=== PATIENT | male | born 1940 | race Caucasian/White ===

== ENCOUNTER 2016-07-07 20:28 | Emergency (ER) | payer OTHER ==
[~2016-07-07] VITALS: Ht 170.2 cm; Wt 67.0 kg
[~2016-07-07 20:28] MED LIST: AMOX1TAB12 PO; DOXY100T PO; LISI-170 PO; METF500T4 PO
[2016-07-07] MEDS ORDERED: DOXYCYCLINE 100MG TABLET PO ONE (21:00)
[2016-07-07] MEDS ORDERED: AMOXICILLIN/CLAV. 250 MG/5 ML ORAL SUSP PO SCH (21:00)
[2016-07-07 21:32] LABS: HEMOGLOBIN 16.1 g/dL (13.7-18.0)
[2016-07-07 21:40] LABS: BLOOD UREA NITROGEN 22 mg/dL (7-18)
[2016-07-07] MEDS ORDERED: SODIUM CHLORIDE 0.9% 1,000 ML IV ONE (22:35)
[2016-07-07] MEDS ORDERED: ONDANSETRON 2MG/ML, 2ML IVPush PRN (23:00)
[2016-07-07] MEDS ORDERED: LISINOPRIL 20 MG TABLET ONE (23:15)
[2016-07-08] MEDS ORDERED: LISINOPRIL 20 MG TABLET PO ONE
[2016-07-08 00:51] VITALS: BP 175/97
== END 2016-07-08 01:43 | disposition short-term general hospital (02) ==
LOC: ED 22:24 → EDIP 22:35 → UNDOADMIN 22:35 → ED 07-08 01:43
DX: L03.116 Cellulitis of left lower limb (principal); L03.115 Cellulitis of right lower limb; E11.65 Type 2 diabetes mellitus with hyperglycemia; I10 Essential (primary) hypertension
CPT/HCPCS: 36415; 70450; 80048; 82040; 85025; 96360; 96361; 99285; J7030

== ENCOUNTER 2016-08-17 18:05 | Inpatient (IN) | payer OTHER ==
[~2016-08-17] VITALS: Ht 160 cm; Wt 60.1 kg
[2016-08-17] MEDS ORDERED: SODIUM CHLORIDE 0.9% 1,000ML IVBOLUS ONE (19:00)
[2016-08-17] MEDS ORDERED: SODIUM CHLORIDE FLUSH 10ML SYR IVF ONE (19:00)
[2016-08-17 19:41] LABS: BLOOD UREA NITROGEN 51 mg/dL (7-18)
[2016-08-17 19:46] LABS: IS PT STATUS REG ER OR PRE ER? YES
[2016-08-17] MEDS ORDERED: ASPIRIN 81 MG TABLET CHEW PO ONE (20:00)
[2016-08-17] MEDS ORDERED: HEPARIN 5,000 UNITS/ML, 1ML IV ONE (20:00)
[2016-08-17] MEDS ORDERED: HEPARIN 25,000 UNITS/500ML PMX 500 ML ONE (20:13)
[2016-08-17] MEDS ORDERED: HEPARIN 5,000 UNITS/ML, 1ML ONE (20:13)
[2016-08-17] MEDS ORDERED: ASPIRIN 81 MG TABLET CHEW ONE (20:13)
[2016-08-17] MEDS: HEPARIN 25,000 UNITS/500ML PMX 500 ML IV PRN (20:24)
[2016-08-17] MEDS ORDERED: NITROGLYCERIN SINGLE TAB 0.4 MG SL PRN (21:30)
[2016-08-17] MEDS ORDERED: morphine SULFATE 10 MG/ML, 1ML IV PRN (21:30)
[2016-08-17] MEDS: SODIUM CHLORIDE 0.9% 1,000 ML IV SCH (22:09)
[2016-08-17 22:21] VITALS: BP 160/84
[2016-08-18 01:03] VITALS: BP 157/83
[2016-08-18 02:46] LABS: IS PT STATUS REG ER OR PRE ER? NO
[2016-08-18] MEDS: HEPARIN 5,000 UNITS/ML, 1ML IV PRN ×2 (02:55→11:27)
[2016-08-18] MEDS: SODIUM CHLORIDE 0.9% 1,000 ML IV SCH ×2 (06:10→14:44)
[2016-08-18 07:13] VITALS: BP 147/73
[2016-08-18] MEDS ORDERED: LISINOPRIL 20 MG TABLET PO SCH (09:00)
[2016-08-18] MEDS ORDERED: METOPROLOL TARTRATE 100 MG TABLET PO SCH (09:00)
[2016-08-18 09:26] LABS: IS PT STATUS REG ER OR PRE ER? NO
[2016-08-18] MEDS: ASPIRIN 325 MG TABLET EC PO SCH (09:39)
[2016-08-18] MEDS: SODIUM CHLORIDE FLUSH 10ML SYR IVF SCH ×2 (09:39→22:08)
[2016-08-18] MEDS: INSULIN ASPART 100 UNITS/ML, PEN SQ-INSULIN SCH ×3 (13:08→22:09)
[2016-08-18 14:44] LABS: IS PT STATUS REG ER OR PRE ER? NO
[2016-08-18 14:48] VITALS: BP 142/83
[2016-08-18 16:59] VITALS: BP 162/80
[2016-08-18] MEDS: CARVEDILOL 6.25 MG TABLET PO SCH (17:01)
[2016-08-18 20:23] LABS: IS PT STATUS REG ER OR PRE ER? NO
[2016-08-18 21:06] VITALS: BP 139/72
[2016-08-18] MEDS: ATORVASTATIN 80 MG TABLET PO SCH (22:09)
[2016-08-19 01:32] VITALS: BP 112/60
[2016-08-19] MEDS: SODIUM CHLORIDE 0.9% 1,000 ML IV SCH ×2 (01:35→08:31)
[2016-08-19] MEDS: HEPARIN 5,000 UNITS/ML, 1ML IV PRN ×3 (01:49→20:27)
[2016-08-19] MEDS: HEPARIN 25,000 UNITS/500ML PMX 500 ML IV PRN (03:51)
[2016-08-19 05:53] LABS: ASPARTATE AMINO TRANSFERASE 15 U/L (15-37); BLOOD UREA NITROGEN 19 mg/dL (7-18)
[2016-08-19] MEDS: ASPIRIN 325 MG TABLET EC PO SCH (06:15)
[2016-08-19] MEDS: CARVEDILOL 6.25 MG TABLET PO SCH (06:15)
[2016-08-19 06:47] VITALS: BP 153/69
[2016-08-19] MEDS: INSULIN ASPART 100 UNITS/ML, PEN SQ-INSULIN SCH ×4 (07:00→20:48)
[2016-08-19] MEDS: SODIUM CHLORIDE FLUSH 10ML SYR IVF SCH ×2 (08:28→20:47)
[2016-08-19 12:45] VITALS: BP 153/77
[2016-08-19] MEDS: GUAIFENESIN 200 MG TABLET PO SCH ×3 (12:46→20:47)
[2016-08-19] MEDS: LISINOPRIL 10 MG TABLET PO SCH (12:46)
[2016-08-19] MEDS: CARVEDILOL 3.125 MG TABLET PO SCH (17:30)
[2016-08-19] MEDS ORDERED: CARVEDILOL 3.125 MG TABLET PO SCH (18:00)
[2016-08-19 19:45] VITALS: BP 124/55
[2016-08-19] MEDS: ATORVASTATIN 80 MG TABLET PO SCH (20:47)
[2016-08-20] VITALS (7 sets, daily range): BP systolic 115–170; BP diastolic 64–84
[2016-08-20 03:06] LABS: BLOOD UREA NITROGEN 17 mg/dL (7-18)
[2016-08-20] MEDS: HEPARIN 25,000 UNITS/500ML PMX 500 ML IV PRN (05:10)
[2016-08-20] MEDS: CARVEDILOL 3.125 MG TABLET PO SCH ×2 (05:43→17:38)
[2016-08-20] MEDS: GUAIFENESIN 200 MG TABLET PO SCH ×4 (05:43→20:15)
[2016-08-20] MEDS: ASPIRIN 325 MG TABLET EC PO SCH (05:43)
[2016-08-20] MEDS: INSULIN ASPART 100 UNITS/ML, PEN SQ-INSULIN SCH ×4 (09:11→20:15)
[2016-08-20] MEDS: SODIUM CHLORIDE FLUSH 10ML SYR IVF SCH ×2 (09:15→20:16)
[2016-08-20] MEDS: LISINOPRIL 10 MG TABLET PO SCH ×2 (09:15→20:16)
[2016-08-20] MEDS: CLOPIDOGREL 75 MG TABLET PO SCH (12:15)
[2016-08-20] MEDS: ATORVASTATIN 80 MG TABLET PO SCH (20:16)
[2016-08-21] VITALS (7 sets, daily range): BP systolic 142–188; BP diastolic 66–96
[2016-08-21] MEDS ORDERED: hydrALAzine 20 MG/ML, 1ML IV PRN (03:00)
[2016-08-21] MEDS: GUAIFENESIN 200 MG TABLET PO SCH ×3 (05:24→16:27)
[2016-08-21] MEDS: CARVEDILOL 3.125 MG TABLET PO SCH ×2 (05:24→18:08)
[2016-08-21] MEDS: ASPIRIN 325 MG TABLET EC PO SCH (05:24)
[2016-08-21 06:01] LABS: BLOOD UREA NITROGEN 12 mg/dL (7-18)
[2016-08-21] MEDS: INSULIN ASPART 100 UNITS/ML, PEN SQ-INSULIN SCH ×3 (07:00→16:00)
[2016-08-21] MEDS: SODIUM CHLORIDE FLUSH 10ML SYR IVF SCH (08:26)
[2016-08-21] MEDS: CLOPIDOGREL 75 MG TABLET PO SCH (08:26)
[2016-08-21] MEDS: LISINOPRIL 10 MG TABLET PO SCH (08:26)
[2016-08-21] MEDS ORDERED: POTASSIUM CHLORIDE 20 MEQ TAB.ER.PRT PO ONE (09:30)
[2016-08-21] MEDS ORDERED: ASPI-650 PO (16:49)
[2016-08-21] MEDS ORDERED: CLOP75TA PO (16:49)
[2016-08-21] MEDS ORDERED: INSU100I18 SQ-INSULIN (16:49)
[2016-08-21] MEDS ORDERED: LISI-170 PO (16:49)
[2016-08-21] MEDS ORDERED: ATOR80TA75 PO (16:49)
[2016-08-21] MEDS ORDERED: CARV3.1212 PO (16:49)
[2016-08-21] MEDS ORDERED: ACETAMINOPHEN 325 MG TABLET PO PRN (18:30)
[2016-08-21] MEDS ORDERED: LISINOPRIL 20 MG TABLET PO SCH (21:00)
== END 2016-08-21 18:57 | DRG 280 ==
LOC: ED 20:02 → EDIP 20:41 → 5SO 21:23
PROVIDERS: ADMIT Internal Medicine; ATTEND Internal Medicine
DX: I21.4 Non-ST elevation (NSTEMI) myocardial infarction (principal); N17.0 Acute kidney failure with tubular necrosis; I42.9 Cardiomyopathy, unspecified; I47.1 Supraventricular tachycardia; I50.22 Chronic systolic (congestive) heart failure; Q21.1 Atrial septal defect; D64.9 Anemia, unspecified; E11.21 Type 2 diabetes mellitus with diabetic nephropathy; E78.5 Hyperlipidemia, unspecified; F17.200 Nicotine dependence, unspecified, uncomplicated; I07.1 Rheumatic tricuspid insufficiency; R79.89 Other specified abnormal findings of blood chemistry; R00.1 Bradycardia, unspecified; I45.4 Nonspecific intraventricular block; I11.0 Hypertensive heart disease with heart failure; I25.10 Atherosclerotic heart disease of native coronary artery without angina pectoris; I25.5 Ischemic cardiomyopathy; Z59.0 Homelessness; Z79.82 Long term (current) use of aspirin; Z79.84 Long term (current) use of oral hypoglycemic drugs; Z79.899 Other long term (current) drug therapy; Z86.73 Personal history of transient ischemic attack (TIA), and cerebral infarction without residual deficits; Z91.19 Patient's noncompliance with other medical treatment and regimen
CPT/HCPCS: 36415; 71010; 80048; 80053; 80061; 82040; 82962; 83036; 83735; 84484; 85025; 85520; 85610; 93005; 93306; 96361; 96365; 96366; 96375; J1644; J1815; J0360; J7030